=== PATIENT | female | born 1995 | race Two or more races ===

== ENCOUNTER 2025-02-26 14:02 | Inpatient (IN) | payer MEDICAID, SELFPAY ==
[2025-02-26] VITALS (28 sets, daily range): BP systolic 79–110; BP diastolic 51–80; PULSE 76–118; RESP 17–98; TEMP 36.8–36.9; O2SAT 96–100; BMI 23.6
--- NOTE | 2025-02-26 14:49 | XR_ITS ---
Examination: Biophysical profile, ultrasound Date and time of exam: February 26, 2025, 1528 hrs. Indications: deceleration in the doctor's office today. Technique: Multiple transabdominal sonographic images of the pelvis abdomen obtained. Attention is directed to the breathing movement, gross body movement, amniotic fluid volume and tone. Findings: Amniotic fluid index 4.2 cm Total biophysical profile is 8 of 8. breathing movement is 2. Gross body movement is 2. tone is 2. Qualitative amniotic fluid volume is 2 Impression: Biophysical profile is 8 of 8.
--- NOTE | 2025-02-26 18:10 | PD.LDHP ---
Documentation for date of: 02/26/25 OB Labor/Induct. HPI History of Present Illness : 1 Para: 0 Term pregnancies: 0 pregnancies: 0 Living children: 0 History of Abortions: Spontaneous and Elective: 0 History of Vaginal deliveries: 0 History of sections: No History of : No KATLYN: 03/05/25 History of present illness: H and P dictated in Nuance on STAT line #9 : [id number] History of Present Adequate Care: Yes Past Medical History Surgical History SURGICAL: Negative Section Meds Home Medications and Allergies Home Medications ?Medication ?Instructions ?Recorded ?Confirmed ?Type colchicine 0.6 mg tablet 0.6 mg PO QDAY 12/18/23 12/18/23 History omeprazole 40 mg capsule,delayed 40 mg PO QDAY 12/18/23 12/18/23 History release pantoprazole 40 mg tablet,delayed 40 mg PO QDAY 12/18/23 12/18/23 History release Allergies Allergy/AdvReac Type Severity Reaction Status Date / Time No Known Allergies Allergy Verified 02/26/25 14:15 OB Exam Physical Exam Vital signs: Temp Pulse Resp BP Pulse Ox 98.3 F 99 20 110/80 99 02/26/25 14:10 02/26/25 14:10 02/26/25 14:10 02/26/25 14:10 02/26/25 15:26
[2025-02-26] MEDS: RINGERS LACTATED 1000 ML 1,000 ML 100 ML IV ×2 (19:59→23:39)
[2025-02-26 20:24] LABS: Basophils # (Auto) 0.1 Thou/mm3 (0.0-0.2); Basophils % (Auto) 1 % (0-2.5); Eosinophils # (Auto) 0.1 Thou/mm3 (0.0-0.5); Eosinophils % (Auto) 1 % (0-10); Hematocrit 37.0 % (36.0-46.0); Hemoglobin 12.4 g/dL (12.0-16.0); Immature Granulocytes Auto 0.08 Thou/mm3 (0.00-0.00); Lymphocytes # (Auto) 1.8 Thou/mm3 (1.0-4.8); Lymphocytes % (Auto) 19 % (10-50); Mean Corpuscular HGB Conc 33.5 g/dl (31.0-37.0); Mean Corpuscular Hemoglobin 29.9 pg (25.0-35.0); Mean Corpuscular Volume 89 fL (80-100); Monocytes # (Auto) 0.8 Thou/mm3 (0.0-0.8); Monocytes % (Auto) 9 % (0-12); Neutrophils # (Auto) 6.6 Thou/mm3 (1.8-7.7); Neutrophils % (Auto) 70 % (37-80); Nucleated Red Blood Cell # 0.00 Thou/mm3 (0.00-0.00); Nucleated Red Blood Cell % 0 /100 WBC (0); Platelet Count 160 Thou/mm3 (140-440); RDW Standard Deviation 42.3 fL (36.4-46.3); Red Blood Count 4.15 Miln/mm3 (4.00-5.20); White Blood Count 9.4 Thou/mm3 (3.6-11.0)
[2025-02-27] VITALS (33 sets, daily range): BP systolic 83–145; BP diastolic 52–75; PULSE 70–106; RESP 16–18; TEMP 36.6–37.1
[2025-02-27 00:11] LABS: Amphetamine/Metham Scrn,Ur OB Negative (Negative); Benzoylecgonine Screen, Ur OB Negative (Negative); Opiate Screen,Urine OB Negative (Negative); THC Screen,Urine OB Negative (Negative)
[2025-02-27 01:18] LABS: Syphilis Nonreactive (Nonreactive)
--- NOTE | 2025-02-27 11:54 | PD.LDPN ---
Documentation for date of: 02/27/25 OB Labor Progress Note Pelvic Exam Dilation (cm): close station: -3 Amniotic membrane status: Intact Contractions Monitor mode: External Contraction frequency: 3-3 Contraction pattern: Coupling Contraction intensity: Mild Status status: Category l Assessment and Plan Comments: Induction on-going S/P Cervidil x 1 Begin Cytotec po.
[2025-02-27] MEDS: RINGERS LACTATED 1000 ML 1,000 ML 100 ML IV ×2 (13:32→23:15)
[2025-02-28] VITALS (15 sets, daily range): BP systolic 90–120; BP diastolic 56–75; PULSE 61–96; RESP 16–18; TEMP 36.5–36.9
[2025-02-28] MEDS: RINGERS LACTATED 1000 ML 1,000 ML 100 ML IV (06:36)
--- NOTE | 2025-02-28 07:25 | PD.LDPN ---
Documentation for date of: 02/28/25 OB Labor Progress Note Pelvic Exam Dilation (cm): 2 Effacement (%): thick station: -3 Amniotic membrane status: Intact Contractions Monitor mode: External Contraction frequency: 3-4 Contraction pattern: Coupling Contraction intensity: Mild Status status: Category l Assessment and Plan Comments: Cervical Ripening Induction on-going
--- NOTE | 2025-02-28 07:45 | XR_ITS ---
Examination: age Limited TECHNIQUE: Limited transabdominal sonographic images pelvis Date and time: February 28, 2025, 0800 hours INDICATIONS: Preop induction today labor evaluation FINDINGS: Viable intrauterine gestation cephalic presentation spine anterior Cardiac motion 148 BPM Amniotic fluid index 10.0 cm Estimated weight 2482 g IMPRESSION: Viable intrauterine gestation cephalic presentation
--- NOTE | 2025-02-28 09:02 | ESHP_ITS ---
RE: ARIS BLACK : 1995 DATE OF ADMISSION: 02/26/2025 HISTORY OF PRESENT ILLNESS: This is a 29-year-old 1 para 0 with due date of 03/05/2025 with intrauterine at 39 weeks and 0 days, who presented to labor and delivery complaining of contractions and was noted to have initially a nonreactive NST, which subsequently became reactive. She underwent biophysical profile, which showed 8/8, but an NATALYA of 4.2. The patient denies any leaking or bleeding. She reports normal movement. Her care was complicated by an ultrasound at [facility] on 12/30/2024 showing overall growth at the 10th percentile with an abdominal circumference at the 2nd percentile. The patient was referred to maternal medicine. They subsequently did an ultrasound on 02/02/2025, which showed the overall growth at the 24th percentile with an abdominal circumference at the 31st percentile. The patient has had no health issues during her . She does have a history of pericarditis due to an infectious cause. In 2023, she was treated with colchicine for 3 months and has had no adverse symptoms since resolution. ALLERGIES: NO KNOWN DRUG ALLERGIES. MEDICATIONS: 1. multivitamin 1 p.o. daily. 2. Ferrous sulfate 325 mg 1 p.o. b.i.d. PAST MEDICAL HISTORY: Pericarditis in 2023, diverticular disease, external hemorrhoids, and anxiety. PAST SURGICAL HISTORY: Colonoscopy in 2023. SOCIAL HISTORY: The patient used marijuana in the past, but stopped at the onset of . She denies any alcohol or drug use or marijuana during the or smoking. FAMILY HISTORY: Denies. REVIEW OF SYSTEMS: She denies any chest pain, palpitations, cough, fever, shortness of breath, flank pain or lower extremity pain. She denies any headache, change in vision or right upper quadrant pain. PHYSICAL EXAMINATION: VITAL SIGNS: Blood pressure is 116/73, heart rate 88, respirations 18, and temperature is 98.6. HEENT: Oropharynx and sclerae are clear. LUNGS: Clear to auscultation bilaterally. HEART: Regular rate and rhythm. ABDOMEN: Gravid consistent with estimated weight of 7-1/4 pounds. PELVIC: See RN notes. EXTREMITIES: Nontender. SKIN: No gross rashes or lesions. NEUROLOGIC: No focal deficits. ASSESSMENT AND PLAN: Intrauterine at 39 weeks and 0 days, oligohydramnios, induction of labor. Anticipate spontaneous vaginal delivery. Informed consent was obtained. The patient made aware of the risks, complications, alternatives, and benefits of operative vaginal delivery and delivery and she agrees with these modes of delivery if indicated. DT: 18:09:35 TT: 18:47:00 Ref: [id number] - TID: [id number]
--- NOTE | 2025-02-28 11:36 | PD.LDPN ---
Documentation for date of: 02/28/25 OB Labor Progress Note Pelvic Exam Dilation (cm): 2 Effacement (%): thick station: -3 Amniotic membrane status: Intact Contractions Monitor mode: External Contraction frequency: 1-6 Contraction pattern: Coupling Contraction intensity: Mild Status status: Category l Assessment and Plan Comments: Low Miller score after Cervidil x 1 and Cytotec x 4 US shows SGA with overall growth at 2450g or less than the 10th%. NATALYA increased from 4.4 to 10.0. Tracing has been reassuring. Offered patient options of continuing with cervical ripening, beginning Pitocin , going home (although I do not recommend this due to SGA) and C/S for failed induction. Pt elects to continue with cervical ripening in the form of Cervidil.
[2025-03-01] VITALS (225 sets, daily range): BP systolic 79–174; BP diastolic 11–104; PULSE 66–150; RESP 16–20; TEMP 36.2–38.8; O2SAT 83–100
[2025-03-01] MEDS: RINGERS LACTATED 1000 ML 1,000 ML 100 ML IV (06:30)
[2025-03-01] MEDS: RINGERS LACTATED 1000 ML 1,000 ML 999 ML IV (06:31)
--- NOTE | 2025-03-01 07:34 | PD.LDPN ---
Documentation for date of: 03/01/25 OB Labor Progress Note Pain Control Comments: Epidural Pelvic Exam Dilation (cm): 6 Effacement (%): 80 station: -1 Amniotic membrane status: Ruptured Comments: AROM clear fluid Contractions Monitor mode: External Contraction frequency: 1-2 Contraction pattern: Coupling Contraction intensity: Mild Status status: Category l Assessment and Plan Comments: Active Labor Anticipate .
[2025-03-01] MEDS: OXYTOCIN in NS 30 units 30 UNIT/500 ML BAG IV (11:31)
[2025-03-01] MEDS: MINERAL OIL 30 ML UDC TOP (18:25)
[2025-03-01] MEDS: OXYTOCIN in NS 20 units 20 UNIT/1,000 ML BAG 125 UNIT IV (18:42)
[2025-03-01] MEDS: LIDOCAINE HCL 1% 20 ML VIAL INFL (18:42)
[2025-03-01] MEDS: METHYLERGONOVINE INJ 0.2 MG/ML VIAL IM (18:54)
--- NOTE | 2025-03-01 19:05 | ESDS_ITS ---
DS: Providers Provider Date of admission: 02/26/25 18:03 Primary care physician: Physician No Primary/Family Admitting Provider: Yves Fernández MD Attending Provider on Admission: Yves Fernández MD Attending Provider on DC: Yves Fernández MD Discharging Provider: Yves Fernández MD DS: Diagnosis Discharge Diagnosis (1) (normal spontaneous vaginal delivery): Status: Acute (2) IUGR (intrauterine growth restriction) affecting care of mother: Status: Acute (3) Oligohydramnios antepartum: Status: Acute Problem List Completed Was Problem List Reviewed/Reconciled?: Yes Summary/Hosp Course Brief History: H and P dictated in Nuance on STAT line #9 : [id number] Peripartum Data Delivery Method: Normal Vaginal Delivery Laceration Description: see Delivery Summary [place] 1: Gender: Male Disposition of : home Time Spent with Patient Time attestation: Total time spent providing and/or coordinating discharge services: Exam Vital Signs Temp Pulse Resp BP Pulse Ox O2 Del Method 98.3 F 98 17 100/56 L 100 Room Air 03/01/25 16:18 03/01/25 19:03 03/01/25 16:18 03/01/25 19:03 03/01/25 19:02 03/01/25 16:18 Discharge Plan Plan Patient Disposition: HOME (Self Care) Patient condition on transfer: Stable Prescriptions/Referrals Prescriptions/Med Rec: New ibuprofen 600 mg tablet 600 mg PO Q6H PRN (Reason: pain) Qty: 30 0RF amoxicillin-pot clavulanate 875-125 mg tablet 1 tab PO Q12H Qty: 10 0RF Continued ferrous sulfate 325 mg (65 mg iron) tablet 325 mg PO DAILY Patient Comments: Take 1 tablet by mouth every other day PNV no.95-ferrous fumarate-FA [] 28 mg iron- 800 mcg tablet 1 tab PO DAILY Patient Comments: TAKE 1 TABLET BY MOUTH EVERY DAY Discontinued omeprazole 40 mg capsule,delayed release(DR/EC) 40 mg PO QDAY Patient Comments: TAKE 1 CAPSULE BY MOUTH EVERY DAY 30 MINUTES BEFORE MORNING MEAL FOR 90 DAYS pantoprazole 40 mg tablet,delayed release (DR/EC) 40 mg PO QDAY Patient Comments: TAKE 1 TABLET BY MOUTH EVERY DAY colchicine 0.6 mg tablet 0.6 mg PO QDAY Patient Comments: TAKE 1 TABLET BY MOUTH TWICE A DAY Referrals: No Primary/Family,Physician [Primary Care Provider] Patient/Caregiver Discharge Instructions Discharge Activity: activity as tolerated Other Discharge Activity Instructions:: Follow up office 6 weeks Print Language: Greenlandic Stand Alone Forms: Kathy Award Info., Patient Portal Info Letter Discharge Order Discharge Orders: Discharge (Routine); Ordered 03/03/25 Ordered By: Yves Fernández Planned Discharge Date 03/03/25 (2) IUGR (intrauterine growth restriction) affecting care of mother Qualifiers: Fetus number: single or unspecified fetus Trimester: third trimester Qualified Code(s): O36.5930 - Maternal care for other known or suspected poor growth, third trimester, not applicable or unspecified (3) Oligohydramnios antepartum Qualifiers: Fetus number: single or unspecified fetus Qualified Code(s): O41.00X0 - Oligohydramnios, unspecified trimester, not applicable or unspecified
[2025-03-01] MEDS: BENZO/LANO/ALOE (Dermoplast) 60 GM CAN 1 SPRAY TOP (19:07)
[2025-03-01] MEDS: TRANEXAMIC ACID 1,000 MG IVPB 1,000 MG/100 ML BAG 200 MG IV (19:14)
[2025-03-01] MEDS: IBUPROFEN TAB 400 MG TABLET 800 MG PO (19:47)
[2025-03-01] MEDS: AMPICILLIN/SULBAC INJ 3 GM in SODIUM CHLORIDE 0.9% (POP) 100 ML IV (20:08)
[2025-03-01] MEDS: ONDANSETRON INJ 2 MG/ML INJ 2 ML 4 MG IVP (20:09)
[2025-03-01] MEDS: ACETAMINOPHEN IVPB 1,000 MG/100 ML VIAL 250 MG IV (21:01)
[2025-03-02 00:40] VITALS: BP 118/79; PULSE 75; RESP 16; TEMP 37.1; O2SAT 98
[2025-03-02 01:27] LABS: Basophils # (Auto) 0.0 Thou/mm3 (0.0-0.2); Basophils % (Auto) 0 % (0-2.5); Eosinophils # (Auto) 0.0 Thou/mm3 (0.0-0.5); Eosinophils % (Auto) 0 % (0-10); Hematocrit 33.9 % (36.0-46.0); Hemoglobin 11.6 g/dL (12.0-16.0); Immature Granulocytes Auto 0.09 Thou/mm3 (0.00-0.00); Lymphocytes # (Auto) 1.5 Thou/mm3 (1.0-4.8); Lymphocytes % (Auto) 9 % (10-50); Mean Corpuscular HGB Conc 34.2 g/dl (31.0-37.0); Mean Corpuscular Hemoglobin 30.4 pg (25.0-35.0); Mean Corpuscular Volume 89 fL (80-100); Monocytes # (Auto) 1.0 Thou/mm3 (0.0-0.8); Monocytes % (Auto) 6 % (0-12); Neutrophils # (Auto) 14.4 Thou/mm3 (1.8-7.7); Neutrophils % (Auto) 85 % (37-80); Nucleated Red Blood Cell # 0.00 Thou/mm3 (0.00-0.00); Nucleated Red Blood Cell % 0 /100 WBC (0); Platelet Count 125 Thou/mm3 (140-440); RDW Standard Deviation 42.5 fL (36.4-46.3); Red Blood Count 3.81 Miln/mm3 (4.00-5.20); White Blood Count 17.0 Thou/mm3 (3.6-11.0)
[2025-03-02] MEDS: AMPICILLIN/SULBAC INJ 3 GM in SODIUM CHLORIDE 0.9% (POP) 100 ML IV ×4 (01:53→19:38)
[2025-03-02 04:15] VITALS: BP 108/70; PULSE 72; RESP 17; TEMP 36.9; O2SAT 96
--- NOTE | 2025-03-02 05:01 | ESPR_ITS ---
Subjective Subjective Interval history: Patient denies any primary complaint. She denies any excessive vaginal bleeding, dizziness or lightheadedness. She denies any chest pain palpitation shortness of breath or lower extremity pain. Exam Vital Signs Temp Pulse Resp BP Pulse Ox O2 Del Method 98.7 F 75 16 118/79 98 Room Air 03/02/25 00:40 03/02/25 00:40 03/02/25 00:40 03/02/25 00:40 03/02/25 00:40 03/02/25 00:40 Routine Respiratory Exam Comments: Clear to auscultation bilaterally Routine Cardiovascular Exam Comments: Regular rate and rhythm Routine Abdominal Exam Comments: Fundus is firm Routine Extremities Exam Comments: Nontender Routine Back/Spine/Pelvis Exam Comments: No CVA tenderness Routine Skin Exam Comments: No gross rashes or lesions Objective Labs 03/02/25 01:16 Labs: Laboratory Results - last 24 hr 03/02/25 01:16 WBC 17.0 H D RBC 3.81 L Hgb 11.6 L Hct 33.9 L MCV 89 MCH 30.4 MCHC 34.2 RDW Std Deviation 42.5 Plt Count 125 L D Neut % (Auto) 85 H Lymph % (Auto) 9 L [place] % (Auto) 6 Eos % (Auto) 0 Baso % (Auto) 0 Neut # (Auto) 14.4 H Lymph # (Auto) 1.5 [place] # (Auto) 1.0 H Eos # (Auto) 0.0 Baso # (Auto) 0.0 Immature Gran # (Auto) 0.09 H Absolute Nucleated RBC 0.00 Immature Gran % 1 H Nucleated RBC % 0 Impressions Impression: day #1 status post spontaneous vaginal delivery fever Possible endometritis Uterine atony resolved with uterotonic's Unasyn Tylenol fitness sales consultant Encourage ambulation Possible discharge home tomorrow Assessment & Plan Problem List (1) (normal spontaneous vaginal delivery): Status: Acute (2) IUGR (intrauterine growth restriction) affecting care of mother: Status: Acute (3) Oligohydramnios antepartum: Status: Acute Time Spent With Patient Time: Total time spent is greater than 50% in coordination of care (as documented) at patient's floor/unit and/or counseling patient:
--- NOTE | 2025-03-02 09:34 | PC.NURSE ---
09 ERIC JIMENEZ ON THE UNIT
[2025-03-02 11:53] VITALS: BP 106/72; PULSE 70; RESP 17; TEMP 36.7; O2SAT 99
--- NOTE | 2025-03-02 13:16 | PC.SS ---
TEMPLE MEAT CUTTER conducted bedside contact with the patient to address nursing referral indicating patient possessed history of anxiety and late to care at 16 weeks.? TEMPLE MEAT CUTTER introduced self and role.? At bedside with patient was MAIKELB, Gareth Armando.? Patient gave permission for FOB to be present during discussion.? TEMPLE MEAT CUTTER relayed basis of referral.? Patient confirmed late to care due to inability to schedule OB appointment.? Initial OB appointment made prior to 12 week timeline.? [facility] [address] contacted patient to cancel appointment due to lack of providers.? [facility] appointment scheduled after 12 week timeline.? OB services provided by Dr. Fernández.? Patient reports compliance with OB appointments.? Patient confirmed history of anxiety.? Patient shared possessing low level of anxiety at times.? Per patient, level of anxiety has not impaired daily functioning.? Patient is not prescribed medication to address anxiety.? Patient denies history of mental health.? Patient denies history of self-harm behaviors or psychiatric placement.? FOB confirmed that patient?s level of anxiety is not impacting daily functioning in an adverse manner.? Infant, Dusty; is the patient?s first child.? delivered naturally.? Patient interacting appropriately with infant.? Patient plans on combo feeding the infant.? Patient is aligned with WIC and SNAP.? Patient is not receiving TANF.? Patient denies history of alcohol/drug use.? Patient denies episodes of domestic violence.? Patient has access to appropriate supplies and equipment.? FOB will provide transportation upon discharge.? Patient describes possessing support system consisting of FOB and extended family.? TEMPLE MEAT CUTTER provided community resources to include [employer] and [employer].? No further intervention required at this time, social welfare administrator will be available to address any further concerns.? TEMPLE MEAT CUTTER updated bedside nurse.?
[2025-03-02 15:55] VITALS: BP 95/60; PULSE 81; RESP 17; TEMP 36.4; O2SAT 99
[2025-03-02 19:00] VITALS: BP 101/63; PULSE 85; RESP 16; TEMP 37.1; O2SAT 97
[2025-03-03] MEDS: AMPICILLIN/SULBAC INJ 3 GM in SODIUM CHLORIDE 0.9% (POP) 100 ML IV ×2 (01:21→07:38)
[2025-03-03 03:37] VITALS: BP 123/82; PULSE 87; RESP 16; TEMP 36.7; O2SAT 99
[2025-03-03 05:40] LABS: Basophils # (Auto) 0.1 Thou/mm3 (0.0-0.2); Basophils % (Auto) 0 % (0-2.5); Eosinophils # (Auto) 0.2 Thou/mm3 (0.0-0.5); Eosinophils % (Auto) 1 % (0-10); Hematocrit 33.8 % (36.0-46.0); Hemoglobin 11.2 g/dL (12.0-16.0); Immature Granulocytes Auto 0.06 Thou/mm3 (0.00-0.00); Lymphocytes # (Auto) 2.1 Thou/mm3 (1.0-4.8); Lymphocytes % (Auto) 17 % (10-50); Mean Corpuscular HGB Conc 33.1 g/dl (31.0-37.0); Mean Corpuscular Hemoglobin 30.0 pg (25.0-35.0); Mean Corpuscular Volume 91 fL (80-100); Monocytes # (Auto) 0.7 Thou/mm3 (0.0-0.8); Monocytes % (Auto) 5 % (0-12); Neutrophils # (Auto) 9.5 Thou/mm3 (1.8-7.7); Neutrophils % (Auto) 76 % (37-80); Nucleated Red Blood Cell # 0.00 Thou/mm3 (0.00-0.00); Nucleated Red Blood Cell % 0 /100 WBC (0); Platelet Count 162 Thou/mm3 (140-440); RDW Standard Deviation 43.8 fL (36.4-46.3); Red Blood Count 3.73 Miln/mm3 (4.00-5.20); White Blood Count 12.5 Thou/mm3 (3.6-11.0)
--- NOTE | 2025-03-03 06:16 | ESPR_ITS ---
RE: ARIS BLACK : 1995 DATE OF SERVICE: 03/03/2025 date number 2. The patient denies any problem or complaint. She is voiding. She is ambulating. She is tolerating regular diet. She is passing flatus. She denies any excessive vaginal bleeding. She denies any dizziness or lightheadedness. She denies any chest pain, palpitations, shortness of breath or lower extremity pain. OBJECTIVE: Vital Signs: Blood pressure 123/82, heart rate 87, respirations 16, temperature is 98.0, pulse oximetry is 99% on room air. Lungs: Clear to auscultation bilaterally. Heart: Regular rate and rhythm. Abdomen: Fundus is firm. Extremities: Nontender. ASSESSMENT: day number 2, status post spontaneous vaginal delivery, presumptive endometritis. PLAN: Discharge home with Augmentin. Follow up in the office in 6 weeks. DT: 06:08:29 TT: 06:13:00 Ref: [id number] - TID: [id number]
[2025-03-03 07:40] VITALS: BP 124/81; PULSE 97; RESP 16; TEMP 36.7; O2SAT 99
[2025-03-03 12:00] VITALS: BP 124/81; PULSE 82; RESP 16; TEMP 36.7; O2SAT 99
== END 2025-03-03 16:15 | disposition home or self-care (01) | DRG 560 ==
LOC: S4SX 03-01 19:14 → S4NX 03-01 21:39
PROVIDERS: Admitting Provider Specialist; Visit Provider Specialist
DX: O76 Abnormality in fetal heart rate and rhythm complicating labor and delivery (principal); O36.5930 Maternal care for other known or suspected poor fetal growth, third trimester, not applicable or unspecified; Z3A.39 39 weeks gestation of pregnancy; Z37.0 Single live birth; O41.03X0 Oligohydramnios, third trimester, not applicable or unspecified; O62.2 Other uterine inertia
CPT/HCPCS: 36415; 59025; 59409; 76815; 76819; 80307; 85025; 86780; 86850; 86900; 86901; 94762; J0131; J0295; J2210; J2405; J2590; J3490; J7120; S0191; A9270